=== PATIENT | male | born 1995 | race Caucasian/White ===

== ENCOUNTER → 2024-05-18 | Outpatient (CLI) | payer OTHER ==
[~2024-05-18] MED LIST: AUGM500T34 PO; NORCOTAB PO
== END ==
LOC: M RAD 19:43
PROVIDERS: ATTEND Physician Assistant
DX: S62.112A Displaced fracture of triquetrum [cuneiform] bone, left wrist, initial encounter for closed fracture (principal); Y93.9 Activity, unspecified; Y92.9 Unspecified place or not applicable